=== PATIENT | male | born 1970 | race Caucasian/White ===

== ENCOUNTER 2023-11-14 07:13 | Outpatient (CLI) | payer MEDICAID | END 2023-11-14 23:59 | disposition home or self-care (01) | LOC: RAD 07:13 | PROVIDERS: ATTEND Nurse Practitioner Family | DX: M79.642 Pain in left hand (principal); M79.641 Pain in right hand | CPT/HCPCS: 73130 ==

== ENCOUNTER 2024-03-23 08:57 | Emergency (ER) | payer MEDICAID ==
[~2024-03-23] VITALS: Ht 188 cm; Wt 105.0 kg
[2024-03-23] MEDS ORDERED: NAPR-56 PO (09:17)
[2024-03-23] MEDS: ketorolac trometh 15mg/ml vial 15 MG/ML ML IM ONE (09:29)
[2024-03-23 09:36] VITALS: BP 130/76; PULSE 78; RESP 18; TEMP 98.5; O2SAT 97
== END 2024-03-23 09:37 | disposition home or self-care (01) ==
LOC: ER 08:58
DX: M25.511 Pain in right shoulder (principal); M79.672 Pain in left foot; Z88.6 Allergy status to analgesic agent; Z88.8 Allergy status to other drugs, medicaments and biological substances; Z79.1 Long term (current) use of non-steroidal anti-inflammatories (NSAID)
CPT/HCPCS: 96372; 99284; J1885

== ENCOUNTER 2024-04-09 18:46 | Emergency (ER) | payer MEDICAID ==
[~2024-04-09] VITALS: Ht 180.3 cm; Wt 103.1 kg
[~2024-04-09 18:46] MED LIST: NAPR-56 PO
[2024-04-09] MEDS: HYDROcodone/acetaminophen 10/325mg tab PO ONE (19:30)
[2024-04-09] MEDS ORDERED: DICL1PAT13 TOP (20:10)
[2024-04-09] MEDS ORDERED: METH-798 PO (20:10)
[2024-04-09] MEDS ORDERED: HYDR-3972 PO (20:10)
[2024-04-09] MEDS: ketorolac trometh 15mg/ml vial 15 MG/ML ML IM ONE (20:18)
[2024-04-09 20:38] VITALS: BP 140/86; PULSE 90; RESP 20; TEMP 98.6; O2SAT 96
== END 2024-04-09 20:39 | disposition home or self-care (01) ==
LOC: ER 18:46
DX: M54.12 Radiculopathy, cervical region (principal); Z88.6 Allergy status to analgesic agent; Z88.8 Allergy status to other drugs, medicaments and biological substances; Z79.1 Long term (current) use of non-steroidal anti-inflammatories (NSAID)
CPT/HCPCS: 96372; 99283; J1885